=== PATIENT | male | born 1990 ===

== ENCOUNTER 2017-05-18 16:11 | Emergency (ER) | payer OTHER ==
[2017-05-18 16:12] VITALS: BMI 23.6
--- NOTE | 2017-05-18 16:20 | ED PDOC ---
Arrival/HPI - General Time Seen by Provider: 05/18/17 16:18 Historian: Patient - History of Present Illness Narrative History of Present Illness (Text): 05/18/17 16:20 26 y/o male, pmh including cholecystitis, nkda, c/o Rt. wrist redness/pain and swelling x 2 days with no fall or trauma. Pt. stated that he was rubbing the rt. wrist for the past 2 days, itching and painful, noted to be redness today, no difficulty moving the rt. wrist/5 digits, no numbness or tingling, no fever or chills, no palpitation, no fever or chills, no change in vision, no other medical or psychological complaints. Past Medical History - Provider Review Nursing Documentation Reviewed: Yes - Infectious Disease Hx of Infectious Diseases: None - Tetanus Immunization Tetanus Immunization: Unknown - Reproductive Currently Lactating: No - Cardiac Hx Cardiac Disorders: No Other/Comment: tachycardia - Pulmonary Hx Respiratory Disorders: No - Neurological Hx Neurological Disorder: No - HEENT Hx HEENT Disorder: No - Renal Hx Renal Disorder: No - Endocrine/Metabolic Hx Endocrine Disorders: No - Hematological/Oncological Hx Blood Transfusions: No Hx Blood Transfusion Reaction: No - Integumentary Hx Dermatological Disorder: No - Musculoskeletal/Rheumatological Hx Musculoskeletal Disorders: No - Gastrointestinal Hx Gastrointestinal Disorders: No - Genitourinary/Gynecological Hx Genitourinary Disorders: No - Psychiatric Hx Psychophysiologic Disorder: No Hx Depression: No Hx Emotional Abuse: No Hx Physical Abuse: No Hx Substance Use: No - Past Surgical History Past Surgical History: No Previous - Anesthesia Hx Anesthesia Reactions: No Hx Malignant Hyperthermia: No - Suicidal Assessment Feels Threatened In Home Enviroment: No Family/Social History - Physician Review Nursing Documentation Reviewed: Yes Family/Social History: Unknown Family HX Smoking Status: Never Smoked Hx Alcohol Use: No Hx Substance Use: No Hx Substance Use Treatment: No Allergies/Home Meds Allergies/Adverse Reactions: Allergies No Known Allergies Allergy (Verified 05/18/17 16:24) Review of Systems - Review of Systems Constitutional: absent: Fatigue, Fevers Eyes: absent: Vision Changes ENT: absent: Hearing Changes Respiratory: absent: SOB, Cough Cardiovascular: absent: Chest Pain Gastrointestinal: absent: Abdominal Pain, Diarrhea, Nausea, Vomiting Skin: Rash, Pruritis, Skin Lesions, Cellulitis. absent: Laceration, Abscess, Ulcer Psychiatric: absent: Anxiety, Depression, Suicidal Ideation Physical Exam Vital Signs Reviewed: Yes Vital Signs Temp Pulse Resp BP Pulse Ox 05/18/17 18:12 72 18 122/67 98 05/18/17 16:18 98.7 F 85 19 129/82 99 Temperature: Afebrile Blood Pressure: Normal Pulse: Regular Respiratory Rate: Normal Appearance: Positive for: Well-Appearing, Non-Toxic, Comfortable Pain Distress: Mild Mental Status: Positive for: Alert and Oriented X 3 - Systems Exam Head: Present: Atraumatic, Normocephalic Pupils: Present: PERRL Extroacular Muscles: Present: EOMI Conjunctiva: Present: Normal Mouth: Present: Moist Mucous Membranes Neck: Present: Normal Range of Motion Respiratory/Chest: Present: Clear to Auscultation, Good Air Exchange. No: Respiratory Distress, Accessory Muscle Use Cardiovascular: Present: Regular Rate and Rhythm, Normal S1, S2. No: Murmurs Abdomen: Present: Normal Bowel Sounds. No: Tenderness, Distention, Peritoneal Signs Back: Present: Normal Inspection Upper Extremity: Present: Normal Inspection, Other (Rt. wrist/forearm: visible erythematous and skin lichenification noted on the rt. ventral wrist and forearm region approx. [id number] with no streaking or ulcers, no bullseye or target signs, FROM without limitationm, sensation intact, motor 5/5, +radial pulse, capillary refill< 2 seconds, no scaphoid tenderness, no sausage fingers, neurovascular intact. ). No: Cyanosis, Edema Lower Extremity: Present: Normal Inspection. No: Edema Neurological: Present: GCS=15, CN II-XII Intact, Speech Normal Skin: Present: Warm, Dry, Normal Color. No: Rashes Psychiatric: Present: Alert, Oriented x 3, Normal Insight, Normal Concentration Medical Decision Making ED Course and Treatment: 05/18/17 16:35 Differential: Cellulitis vs. DVT vs. Allergic Dermatitis -RUE venuous doppler r/o DVT -Rt. wrist xray r/o gas pattern -Cleocin/bendryl/prednisone -Observe and reassess 05/18/17 18:01 -Xray of the rt. wrist show no fracture/dislocation/soft tissue gas. -RUE Venuous Doppler: as per preliminary report, no acute DVT -Labs show no elevation of wbc and no bandemia, afebrile, no systemic signs of infection. -Itching and rash decreased significantly, likely localized skin but will cover with antibiotic since there is erythematous and pain. -Discharge home with cleocin, zyrtec, prednisone, stay hydrated, keep the skin cool and dry, avoid rubbing against the skin, follow up with your own pmd within 2 days, return to the ER for any new or worsening signs or symptoms. - Lab Interpretations Lab Results: 05/18/17 16:40 Lab Results 05/18/17 16:40: WBC 9.6, RBC 4.30, Hgb 13.3 L, Hct 39.2 L, MCV 91.2, MCH 30.9, MCHC 33.9, RDW 12.2, Plt Count 236, MPV 12.1 H, Gran % 62.1, Lymph % (Auto) 22.4 , [place] % (Auto) 8.5 H, Eos % (Auto) 6.8 H, Baso % (Auto) 0.2, Gran # 5.94, Lymph # (Auto) 2.1, [place] # (Auto) 0.8 H, Eos # (Auto) 0.7, Baso # (Auto) 0.02 - RAD Interpretation Radiology Orders: 05/18/17 16:29 WRIST, RIGHT 3 VIEWS [RAD] Stat DUPLEX UPPER EXTRM VEIN RIGHT [US] Stat Rt. wrist xray: normal rt. wrist radiograph. 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 - Medication Orders Current Medication Orders: Discontinued Medications Clindamycin HCl (Cleocin) 300 mg PO STAT STA PRN Reason: Protocol Stop: 05/18/17 16:30 Last Admin: 05/18/17 16:49 Dose: 300 mg Diphenhydramine HCl (Benadryl) 50 mg PO STAT STA Stop: 05/18/17 16:30 Last Admin: 05/18/17 16:49 Dose: 50 mg Famotidine (Pepcid) 20 mg PO STAT STA Stop: 05/18/17 16:32 Last Admin: 05/18/17 16:48 Dose: 20 mg Ibuprofen (Motrin Tab) 600 mg PO STAT STA Stop: 05/18/17 16:34 Last Admin: 05/18/17 16:49 Dose: 600 mg MAR Pain/Vitals Document 05/18/17 16:49 DUSTY (Rec: 05/18/17 16:49 DUSTY [id number]) Pain Reassessment Is This A Pain ReAssessment? 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 Disposition/Present on Arrival - Present on Arrival Any Indicators Present on Arrival: No History of DVT/PE: No History of Uncontrolled Diabetes: No Urinary Catheter: No History of Decub. Ulcer: No History Surgical Site Infection Following: None - Disposition Have Diagnosis and Disposition been Completed?: Yes Diagnosis: Rash, Cellulitis Disposition: HOME/ ROUTINE Disposition Time: 16:36 Patient Plan: Discharge Condition: IMPROVED Discharge Instructions (ExitCare): Cellulitis (ED) Additional Instructions: -Discharge home with cleocin, zyrtec, prednisone, naproxen, stay hydrated, keep the skin cool and dry, avoid rubbing against the skin, follow up with your own pmd within 2 days, return to the ER for any new or worsening signs or symptoms. Prescriptions: Cetirizine HCl [Zyrtec Allergy] 10 mg PO DAILY PRN #10 sgl PRN Reason: Other Clindamycin [Cleocin] 300 mg PO TID #30 cap Naproxen 500 mg PO BID PRN #24 tablet PRN Reason: Other Prednisone 50 mg PO DAILY #4 tab [place] [facility] [place] [facility] [place] - Follow up with primary Forms: WORK NOTE
[2017-05-18 16:24] VITALS: TEMP 98.7
[2017-05-18 17:27] LABS: BASO # 0.02 K/mm3 (0.0-2.0); BASO % 0.2 % (0.0-3.0); EOS # 0.7 (0.0-0.7); EOS % 6.8 % (1.5-5.0); GRAN # 5.94 (1.4-6.5); GRAN % 62.1 % (50.0-68.0); HEMOGLOBIN 13.3 g/dL (14.0-18.0); LYMPH # 2.1 (1.2-3.4); LYMPH % 22.4 % (22.0-35.0); MEAN CELL VOLUME 91.2 fl (80.0-105.0); MEAN CORPUSCULAR HEMOGLOBIN 30.9 pg (25.0-35.0); MEAN CORPUSCULAR HGB CONC 33.9 g/dl (31.0-37.0); MEAN PLATELET VOLUME 12.1 fl (7.0-11.0); MONO # 0.8 (0.1-0.6); MONO % 8.5 % (1.0-6.0); RBC 4.3 10^6/uL (3.5-6.1); RED CELL DISTRIBUTION WIDTH 12.2 % (11.5-14.5); WHITE BLOOD COUNT 9.6 10^3/ul (4.5-11.0)
[2017-05-18 18:19] VITALS: BP 122/67; PULSE 72; RESP 18; O2SAT 98
--- NOTE | 2017-05-19 08:37 | RAD ---
PROCEDURE: Right Wrist Radiographs. HISTORY: rt. wrist swelling COMPARISON: None. FINDINGS: BONES: Normal. No fracture. JOINTS: Normal. No dislocation. SOFT TISSUES: Normal. OTHER FINDINGS: None. IMPRESSION: Normal right wrist radiographs.
--- NOTE | 2017-05-19 12:54 | US ---
PROCEDURE: Right upper extremity venous US CLINICAL HISTORY: Arm pain and swelling Evaluate for deep venous thrombosis. PHYSICIAN(S): Jacob Nguyen M.D FINDINGS: The visualized rightinternal jugular vein is sonographically normal and compressible. No evidence of obstruction or thrombus is seen. The visualized segments of the right subclavian vein are patent with normal waveforms. No sonographic evidence of obstruction or thrombosis is seen. The visualized deep venous system of the proximal right upper extremity is sonographically normal and compressible. IMPRESSION: 1. No sonographic evidence for deep venous thrombosis in the visualized segments of the right upper extremity.
== END 2017-05-18 18:18 | disposition home or self-care (01) ==
LOC: ED 16:11
DX: L03.113 Cellulitis of right upper limb (principal); R21 Rash and other nonspecific skin eruption

== ENCOUNTER 2017-10-07 20:45 | Emergency (ER) | payer OTHER ==
[2017-10-07 21:52] VITALS: BMI 24.9
[2017-10-07 21:56] VITALS: RESP 18
--- NOTE | 2017-10-07 22:11 | ED PDOC ---
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 Patient stated he has not been able to put weight on his left foot. Denies other complains. He is requesting [facility] referral Dr. Parra , PMD Time/Duration: Prior to Arrival Context: Other (park) Past Medical History - Provider Review Nursing Documentation Reviewed: Yes - Infectious Disease Hx of Infectious Diseases: None - Tetanus Immunization Tetanus Immunization: Unknown - Reproductive Currently Lactating: No - Cardiac Hx Cardiac Disorders: No Other/Comment: tachycardia - Pulmonary Hx Respiratory Disorders: No - Neurological Hx Neurological Disorder: No - HEENT Hx HEENT Disorder: No - Renal Hx Renal Disorder: No - Endocrine/Metabolic Hx Endocrine Disorders: No - Hematological/Oncological Hx Blood Transfusions: No Hx Blood Transfusion Reaction: No - Integumentary Hx Dermatological Disorder: No - Musculoskeletal/Rheumatological Hx Musculoskeletal Disorders: No - Gastrointestinal Hx Gastrointestinal Disorders: No - Genitourinary/Gynecological Hx Genitourinary Disorders: No - Psychiatric Hx Psychophysiologic Disorder: No Hx Depression: No Hx Emotional Abuse: No Hx Physical Abuse: No Hx Substance Use: No - Past Surgical History Past Surgical History: No Previous - Surgical History Hx Cholecystectomy: Yes - Anesthesia Hx Anesthesia Reactions: No Hx Malignant Hyperthermia: No - Suicidal Assessment Feels Threatened In Home Enviroment: No Family/Social History - Physician Review Nursing Documentation Reviewed: Yes Family/Social History: Other (noncontributory) Smoking Status: Never Smoked Hx Alcohol Use: No Hx Substance Use: No Hx Substance Use Treatment: No Allergies/Home Meds Allergies/Adverse Reactions: Allergies No Known Allergies Allergy (Verified 10/07/17 21:52) Review of Systems - Review of Systems Constitutional: Normal. absent: Fatigue, Weight Change, Fevers Eyes: Normal ENT: Normal Respiratory: Normal Cardiovascular: Normal Gastrointestinal: Normal Genitourinary Male: Normal Musculoskeletal: Other ((+) left ankle pain. Denies knee pain) Skin: Normal Neurological: Normal Endocrine: Normal Hemo/Lymphatic: Normal Psychiatric: Normal Physical Exam Vital Signs Temp Pulse Resp BP Pulse Ox 10/07/17 21:53 98.6 F 121 H 18 144/81 100 Temperature: Afebrile Blood Pressure: Normal Pulse: Regular Respiratory Rate: Normal Appearance: Positive for: Well-Appearing, Non-Toxic, Comfortable Pain Distress: None Mental Status: Positive for: Alert and Oriented X 3 - Systems Exam Head: Present: Atraumatic, Normocephalic, Other (no raccoon sign. No bhagat sign) Pupils: Present: PERRL, Other (no hyphema) Extroacular Muscles: Present: EOMI. No: Entrapment Conjunctiva: Present: Normal Mouth: Present: Moist Mucous Membranes Neck: Present: Normal Range of Motion, Trachea Midline. No: Meningeal Signs, MIDLINE TENDERNESS, Paraspinal Tenderness, Lymphadenopathy Abdomen: No: Tenderness Back: Present: Normal Inspection. No: CVA Tenderness, Midline Tenderness, Paraspinal Tenderness, Pain with Leg Raise Upper Extremity: Present: Normal Inspection, Normal ROM, NORMAL PULSES Lower Extremity: Present: NORMAL PULSES, Tenderness ((+) left medial malleoulus swelling and tenderness. ), Swelling, Neurovascularly Intact, Capillary Refill < 2 s, Other (Goncalves test was negative. No posterior ankle tenderness. No tenderness over left proximal fibula area.). No: Edema, CALF TENDERNESS, Amaya' s Sign, Erythema, Deformity, Temperature Abnormalties Neurological: Present: GCS=15, CN II-XII Intact, Speech Normal, Motor Func Grossly Intact, Normal Cerebellar Funct, Memory Normal Skin: Present: Warm, Dry, Normal Color. No: Rashes Psychiatric: Present: Alert, Oriented x 3, Normal Insight, Normal Concentration Medical Decision Making ED Course and Treatment: 10/07/17 23:02 Re-evaluation. Patient feels better. Discussed results and plan with patient who expresses understanding. All questions answered and there is agreement with the plan to discharge home with instructions. Patient stable for discharge. Return if symptoms persist or worsen. I recommended RICE and to contact orthopedist in 1-2 days. I reviewed with patient the risk of addiction to Percocet. He understood risk Re-evaluation Time: 23:02 Reassessment Condition: Re-examined, Improved - RAD Interpretation Narrative RAD Interpretations (Text): 10/07/17 23:03 Ankle x-rays: (+) medial distal tibia fracture. Radiology Orders: 07/23/18 22:09 ANKLE LEFT 3 VIEWS ROUTINE [RAD] Stat - Medication Orders Current Medication Orders: Discontinued Medications Ketorolac Tromethamine (Toradol) 15 mg IM STAT STA Stop: 10/07/17 22:11 Last Admin: 10/07/17 22:33 Dose: 15 mg MAR Pain Assessment Document 10/07/17 22:33 HI (Rec: 10/07/17 22:43 [place] [id number]) Pain Reassessment Is this a pain reassessment? No IM Administration Charges Document 10/07/17 22:33 HI (Rec: 10/07/17 22:43 [place] [id number]) Injection Site MAR Injection Site Left Deltoid Charges for Administration # of IM Administrations 1 Disposition/Present on Arrival - Present on Arrival Any Indicators Present on Arrival: No History of DVT/PE: No History of Uncontrolled Diabetes: No Urinary Catheter: No History of Decub. Ulcer: No History Surgical Site Infection Following: None - Disposition Have Diagnosis and Disposition been Completed?: Yes Diagnosis: Ankle fracture, left Disposition: HOME/ ROUTINE Disposition Time: 23:05 Patient Plan: Discharge Condition: IMPROVED Discharge Instructions (ExitCare): Ankle Fracture (DC) Additional Instructions: Call private doctor for follow up visit in 1-2 days. Take medication as instructed with food. Return to emergency if ankle pain worsen. Keep ankle elevated, rest, crutches. Keep splint clean and dry. Prescriptions: Ibuprofen [Motrin] 400 mg PO Q8H PRN #20 tab PRN Reason: Pain, Severe (8-10) oxyCODONE/Acetaminophen [Percocet 5/325 mg Tab] 1 ea PO Q6H PRN #15 tab PRN Reason: Pain, Severe (8-10) Referrals: Brayan Parra MD [Primary Care Provider] - Follow up with primary Jose Whittington DO [Staff Provider] - Follow up with primary Forms: [employer] ([place]), WORK NOTE
[2017-10-07] MEDS ORDERED: Oxycodone/Acetaminophen 5/325 mg Tab PO STA (23:04)
[2017-10-07 23:35] VITALS: BP 132/72; PULSE 92; TEMP 98.5; O2SAT 99
--- NOTE | 2017-10-08 10:13 | RAD ---
Date of service: 10/07/2017 PROCEDURE: Left Ankle Radiographs. HISTORY: pain s/p fall COMPARISON: None FINDINGS: BONES: Transverse mildly displaced medial malleolar fracture. No other fracture identified. JOINTS: Normal. No osteoarthritis. Ankle mortise maintained. Talar dome intact SOFT TISSUES: Medial soft tissue swelling noted. OTHER FINDINGS: None. IMPRESSION: Mildly displaced medial malleolar fracture.
== END 2017-10-07 23:35 | disposition home or self-care (01) ==
LOC: ED 20:45
DX: S82.52XA Displaced fracture of medial malleolus of left tibia, initial encounter for closed fracture (principal); X50.1XXA Overexertion from prolonged static or awkward postures, initial encounter; Y92.830 Public park as the place of occurrence of the external cause; Y93.66 Activity, soccer
CPT/HCPCS: 73610; 96372; 99284; J1885

== ENCOUNTER 2017-10-11 11:01 | Day surgery (SDC) | payer OTHER ==
[2017-10-10 14:03] VITALS: BMI 24.3
[2017-10-11 11:48] VITALS: RESP 18
[2017-10-11] MEDS ORDERED: Midazolam 2 MG/2 ML VIAL ONE (12:18)
[2017-10-11] MEDS ORDERED: Propofol 10 mg/ml Inj (20 ML) ONE (12:18)
[2017-10-11] MEDS ORDERED: Rocuronium 10 mg/ml (5 ml) ONE (12:19)
[2017-10-11] MEDS ORDERED: Vancomycin 1 g Inj ONE (12:37)
[2017-10-11] MEDS: Bupivacaine 0.5% Inj(30mL) ONE ×2 (12:50→13:49)
[2017-10-11] MEDS ORDERED: Glycopyrrolate 0.2 mg/ml (2ml vial) ONE (13:32)
[2017-10-11] MEDS ORDERED: Neostigmine Methylsulfate 3mg/3ml Syringe IV ONE (13:33)
[2017-10-11] MEDS ORDERED: HYDROmorphone 1 mg/ml ISec IVP PRN (13:52)
[2017-10-11] MEDS ORDERED: Lactated Ringer's 1,000 ML IV SCH (14:00)
[2017-10-11] MEDS ORDERED: Midazolam 2 MG/2 ML VIAL IVP PRN (14:18)
--- NOTE | 2017-10-11 14:53 | RAD ---
Date of service: 10/11/2017 PROCEDURE: Fluoroscopy up to 1 hour HISTORY: ORIF LEFT ANKLE FX COMPARISON: TECHNIQUE: 19.0 seconds of fluoro time. 0.0168 mGy. Fourteen images were obtained FINDINGS: The study shows placement of 2 screws in the medial malleolus IMPRESSION: As above
[2017-10-11 15:41] VITALS: PULSE 100; TEMP 97.8
[2017-10-11 16:14] VITALS: BP 112/72; O2SAT 96
--- NOTE | 2017-10-14 08:23 | OP ---
PROCEDURE DATE: 10/11/2017 The patient is a 26-year-old male. PREOPERATIVE DIAGNOSIS: Displaced fracture of the medial malleolus, unstable, of the left ankle. POSTOPERATIVE DIAGNOSIS: Displaced fracture of the medial malleolus, unstable, of the left ankle. PROCEDURE: Open reduction and internal fixation of left medial malleolar fracture which occurred on 10/07/2017. ANESTHESIA: General with endotracheal tube. DESCRIPTION OF PROCEDURE: The patient was taken to the OR and x-ray showed displaced medial malleolar fracture but the swelling was down and we put him supine on the table with a bump under the hip and then we made an anterior incision curvilinear over the medial malleolus going from 3 inches above the tip to just posterior about an inch and then through the subcutaneous tissue. Skin was opened and saphenous vein preserved. Right away, there was a large hematoma we evacuated from the displaced fracture and into position of periosteum. This was all removed and we held the fracture reduced with a towel clip and put a reduction clamp on and put 2 K wires from the tip to the proximal portion of the fracture. Each K wires were replaced via cannulated screw, 4.5 mm, one was 46 mm while the other was 44 mm long. X-ray showed good position of the fracture once we removed the periosteum and held it with the screws that were compressed. X-ray showed good position. Ankle was stable. The wound was irrigated with normal saline and closed with 0 Vicryl with the deep layer, 2-0 Vicryl for subcutaneous tissue, skin with combination of 3-0 nylon and qamar. No tourniquet was utilized. The patient was taken to the recovery room in a posterior splint with a lateral coaptation splint to hold it, but not a circular device. He could go home, nonweightbearing out that left ankle with crutches. I will see him in the office in a week. Jose Whittington DO [facility]
== END 2017-10-11 18:20 | disposition home or self-care (01) ==
LOC: SDS 11:01
PROVIDERS: ATTEND Orthopaedic Surgery
DX: S82.52XA Displaced fracture of medial malleolus of left tibia, initial encounter for closed fracture (principal)
CPT/HCPCS: 27766; 76000; C1713 ×2; J0690; J1170; J2001; J2250; J2405; J2704; J2710; J3010; J7120 ×2